=== PATIENT | male | born 1990 | race Caucasian/White ===

== ENCOUNTER 2020-11-22 11:19 | Emergency (ER) | payer MEDICAID, OTHER ==
[~2020-11-22] VITALS: Ht 180.3 cm; Wt 56.0 kg
--- NOTE | 2020-11-22 11:23 | NUR ---
NOT IN LOBBY @ [id number]
[2020-11-22] MEDS ORDERED: LIDOCAINE-MPF 1%, 5ML ONE (11:52)
[2020-11-22] MEDS ORDERED: LIDOCAINE-MPF 1%, 5ML INFIL ONE (12:00)
[2020-11-22 12:55] VITALS: BP 118/60
== END 2020-11-22 12:57 | disposition home or self-care (01) ==
LOC: ED 12:17
DX: L03.113 Cellulitis of right upper limb (principal); L02.511 Cutaneous abscess of right hand
CPT/HCPCS: 10060